=== PATIENT | female | born 1970 | race Caucasian/White ===

== ENCOUNTER 2022-02-20 19:51 | Emergency (ER) | payer OTHER, SELFPAY ==
--- NOTE | ~2022-02-20 | XR_ITS ---
EXAMINATION: XR elbow LT min 3V DATE: 02/20/2022 20:38 INDICATION: Left elbow pain TECHNIQUE: Anteroposterior, two oblique and lateral views of the left elbow were obtained. COMPARISON: None. FINDINGS: Alignment is normal. No fracture or joint effusion. Joint spaces are normal. Soft tissues are unremarkable. IMPRESSION: 1. No acute osseous abnormality. Reviewed, dictated and finalized at location F.
--- NOTE | ~2022-02-20 | XR_ITS ---
EXAMINATION: XR shoulder LT min 2V INDICATION: Left shoulder pain TECHNIQUE: Four views of the left shoulder are submitted. COMPARISON: None FINDINGS: Normal alignment. No fracture. The glenohumeral joint space is normal. There is widening of the acromioclavicular joint which could reflect prior surgery. Soft tissues are unremarkable. IMPRESSION: 1. No acute osseous abnormality. Reviewed, dictated and finalized at location F.
[2022-02-20 19:58] VITALS: BP 176/99; PULSE 100; RESP 20; TEMP 36.2; O2SAT 98
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
== END 2022-02-21 00:04 | disposition home or self-care (01) ==
LOC: ANHED 23:07
PROVIDERS: Emergency Provider Family Medicine; PCP Physician Assistant
DX: S50.02XA Contusion of left elbow, initial encounter (principal); W51.XXXA Accidental striking against or bumped into by another person, initial encounter
CPT/HCPCS: 73030; 73080; 99284

== ENCOUNTER 2024-07-11 15:10 | Emergency (ER) | payer MEDICARE, MEDICAID, SELFPAY ==
--- NOTE | ~2024-07-11 | XR_ITS ---
XR ankle LT min 3V Ordering provider: Johnny Chowdhury MD History: . injury/pain after falling up stairs . Comparison: None. FINDINGS: BONES: No acute fracture or dislocation. JOINT SPACES: The ankle mortise is normal. SOFT TISSUES: Normal. IMPRESSION: No acute osseous abnormality left ankle. Reviewed, dictated and finalized at location A.
--- NOTE | ~2024-07-11 | XR_ITS ---
XR tibia fibula LT 2V Ordering provider: Johnny Chowdhury MD History: . injury/pain after falling up stairs . Comparison: July 11, 2024 FINDINGS: BONES: No acute fracture or dislocation. JOINT SPACES: Normal. SOFT TISSUES: Normal. IMPRESSION: No acute osseous abnormality left leg. Reviewed, dictated and finalized at location A.
[2024-07-11 15:22] VITALS: BP 126/85; PULSE 86; RESP 17; TEMP 36.3; O2SAT 100
--- NOTE | 2024-07-11 16:52 | ED_ITS ---
HPI - Extremity Injury (Lower) General Chief Complaint: Extremity Injury, Lower Stated Complaint: left lemons injury Time Seen by Provider: 07/11/24 15:56 History of Present Illness HPI Narrative: Patient is a 53-year-old female who presents ER with left lemons pain. A dog was chasing her and her dog 2 days ago when she struck her lemons on a stair. She went to an urgent care for some wound care and then was referred to ER for an x- ray but the wait was too long. She is able to bear weight. There is bruising over the left anterior lemons. Related Data Allergies Allergy/AdvReac Type Severity Reaction Status Date / Time No Known Allergies Allergy Verified 07/11/24 15:35 Review of Systems Constitutional: Constitutional: Reports no additional constitutional complaints Musculoskeletal: Musculoskeletal: Reports no additional musculoskeletal complaints Integumentary/Breasts: Comments: Bruising Exam Narrative: GENERAL: Well-appearing, well-nourished, and in no acute distress. HEAD: Normocephalic, atraumatic. EXTREMITIES: Normal range of motion. No edema. Bruising to anterior left lemons without laceration or abrasion. SKIN: Warm, dry, no rash. NEURO: Alert and oriented x3. PSYCH: Normal mood and affect. Course Course Emergency Course: No fracture. Appropriate for discharge. Vital Signs Vital signs: Vital Signs Temperature 97.4 F L 07/11/24 15:22 Pulse Rate 86 07/11/24 15:22 Respiratory Rate 17 07/11/24 15:22 Blood Pressure 126/85 07/11/24 15:22 Pulse Oximetry 100 07/11/24 15:22 Temperature 97.4 F L 07/11/24 15:22 Pulse Rate 86 07/11/24 15:22 Respiratory Rate 17 07/11/24 15:22 Blood Pressure 126/85 07/11/24 15:22 Pulse Oximetry 100 07/11/24 15:22 MDM - Extremity Injury (Lower) Imaging Data Radiologist's impression: ITS Impressions Ankle X-Ray 07/11/24 16:37 IMPRESSION: No acute osseous abnormality left ankle. Tibia/Fibula X-Ray 07/11/24 16:38 IMPRESSION: No acute osseous abnormality left leg. Discharge Plan Discharge Clinical Impression: Contusion of left leg Patient Disposition: Home, Self-Care Condition: Stable Instructions: Contusion in Adults (ED) Additional Instructions: Return ER if you have fever 100.4? F, you have new injury, or you have additional concerns. Take Tylenol or ibuprofen as needed for pain. Apply ice or heat for comfort. Follow-up/Referrals: Duc,KAILYN Lee [Primary Care Provider] - 1 Week
== END 2024-07-11 17:05 | disposition home or self-care (01) ==
PROVIDERS: Emergency Provider Emergency Medicine; PCP Physician Assistant
DX: S80.12XA Contusion of left lower leg, initial encounter (principal); W22.09XA Striking against other stationary object, initial encounter
CPT/HCPCS: 73590; 73610; 99284